=== PATIENT | female | born 1945 | race Caucasian/White ===

== ENCOUNTER 2017-05-18 17:15 | Emergency (ER) | payer OTHER ==
[~2017-05-18] VITALS: Ht 154.9 cm; Wt 60.0 kg
[~2017-05-18 17:15] MED LIST: ECASA PO; LISI5 PO; LORA.5 PO; PRAV10 PO; VENTAER INH; XANA0.5T PO; ZOFR4TAB3 SL
[2017-05-18 17:23] VITALS: BP 180/75; PULSE 115; RESP 18; TEMP 97.8; O2SAT 98
[2017-05-18] MEDS ORDERED: LOSA100T PO (18:47)
[2017-05-18] MEDS ORDERED: ZOLO100T PO (18:47)
[2017-05-18] MEDS ORDERED: ASPI81CH37 CHEW (18:47)
--- NOTE | 2017-05-18 19:30 | PD ---
HPI Chief Complaint: Abnormal Results Time Seen by Provider: 19:14 Travel History International Travel<30 days: No Contact w/Intl Traveler<30days: No Traveled to known affect area: No History of Present Illness HPI 71-year-old female presents emergency department for evaluation of elevated blood pressure. Patient reports earlier today around 4 PM she got into a verbal argument with some family members which caused her to feel stressed she then took her blood pressure with a home monitoring device and the blood pressure reading was 201/98. She denies headache, visual changes, chest pain, numbness/weakness or tingling extremities. She reports she took her nightly dose of losartan at 4 PM after the reading. She reports she came into the emergency department for recheck of her blood pressure on her machine. She denies any symptoms. PFSH Past Medical History Anxiety: Yes Depression: Yes Heart Rhythm Problems: No Cancer: No Cardiac Catheterization: No Cardiovascular Problems: No High Cholesterol: No Congestive Heart Failure: No Diabetes: No Diminished Hearing: No Endocrine: No Genitourinary: No Hypertension: Yes Neurologic: No Psychiatric: Yes Respiratory: No Myocardial Infarction: No Tetanus Vaccination: Unknown ?: Not Past Surgical History Coronary Artery Bypass Graft: No Gynecologic Surgery: Yes Hysterectomy: Yes Tonsillectomy: Yes Other Surgery: Yes Social History Alcohol Use: Yes (OCCASIONAL GLASS OF WINE) Tobacco Use: No Substance Use: No Allergies-Medications (Allergen,Severity, Reaction): Coded Allergies: No Known Allergies (Verified , 05/18/17) Reported Meds & Prescriptions Reported Meds & Active Scripts Active Reported Aspirin Low Dose (Aspirin) 81 Mg Chew 162 Mg CHEW BID Zoloft (Sertraline HCl) 100 Mg Tab 100 Mg PO DAILY Losartan (Losartan Potassium) 100 Mg Tab 100 Mg PO DAILY Review of Systems Except as stated in HPI: all other systems reviewed are Neg Eyes: No: Visual changes HENT: No: Headaches Cardiovascular: No: Chest Pain or Discomfort Respiratory: No: Shortness of Breath Gastrointestinal: No: Abdominal Pain Genitourinary: No: Dysuria Physical Exam Narrative GENERAL: Well-nourished, well-developed patient. SKIN: Focused skin assessment warm/dry. HEAD: Normocephalic. EYES: No scleral icterus. No injection or drainage. NECK: Supple, trachea midline. No JVD or lymphadenopathy. CARDIOVASCULAR: Regular rate and rhythm without murmurs, gallops, or rubs. RESPIRATORY: Breath sounds equal bilaterally. No accessory muscle use. GASTROINTESTINAL: Abdomen soft, non-tender, nondistended. MUSCULOSKELETAL: No cyanosis, or edema. NEURO: Cranial nerves II through XII intact, normal strength and sensation in extremities. Equal hand grasp. BACK: Nontender without obvious deformity. No CVA tenderness. Data Data Last Documented VS Vital Signs Date Time Temp Pulse Resp B/P (MAP) Pulse Ox O2 Delivery O2 Flow Rate FiO2 05/18/17 17:23 97.8 115 18 180/75 (110) 98 MDM Medical Decision Making Medical Screen Exam Complete: Yes Emergency Medical Condition: Yes Differential Diagnosis Hypertension, hypertensive emergency, other Narrative Course 71-year-old female presents emergency department for evaluation of elevated blood pressure. Patient reports earlier today around 4 PM she got into a verbal argument with some family members which caused her to feel stressed she then took her blood pressure with a home monitoring device and the blood pressure reading was 201/98. She denies headache, visual changes, chest pain, numbness/weakness or tingling extremities. She reports she took her nightly dose of losartan at 4 PM after the reading. While here in emergency department she had several blood pressure readings last blood pressure reading was 160/67. She remained asymptomatic the entire time in the emergency department. She was instructed to continue her losartan as prescribed. And follow-up with her primary doctor. She verbalizes understanding and agrees to plan Diagnosis Primary Impression: HTN (hypertension) Qualified Codes: I10 - Essential (primary) hypertension Referrals: Primary Care Physician Additional Instructions: Take her blood pressure medication as prescribed. Follow-up with her primary doctor. Return to emergency department if he developed new or worsening symptoms Disposition: 01 DISCHARGE HOME Condition: Stable Erin Jones May 18, 2017 19:30
== END 2017-05-18 19:46 | disposition home or self-care (01) ==
LOC: PHED 17:15 → PHEFT 19:46
DX: I10 Essential (primary) hypertension (principal)
CPT/HCPCS: 99282